=== PATIENT | male | born 1995 | race Caucasian/White ===

== ENCOUNTER 2018-11-30 13:04 | Emergency (ER) | payer OTHER ==
[~2018-11-30] VITALS: Ht 193 cm; Wt 95.5 kg
[2018-11-30 13:11] VITALS: BP 129/83; TEMP 97.7
[2018-11-30] MEDS ORDERED: CEPHALEXIN500 M1 PO (14:46)
[2018-11-30 15:03] VITALS: PULSE 85
== END 2018-11-30 15:03 | disposition home or self-care (01) ==
LOC: COL.ER 13:04
DX: S41.111A Laceration without foreign body of right upper arm, initial encounter (principal); F17.210 Nicotine dependence, cigarettes, uncomplicated; W26.8XXA Contact with other sharp object(s), not elsewhere classified, initial encounter; Y92.59 Other trade areas as the place of occurrence of the external cause

== ENCOUNTER → 2018-12-14 | Outpatient (CLI) | payer OTHER ==
[~2018-12-14] MED LIST: CEPHALEXIN500 M1 PO
[2018-12-14 16:12] VITALS: BP 134/83; PULSE 100; TEMP 98.2
== END ==
LOC: COL.ER 15:55
DX: S41.111D Laceration without foreign body of right upper arm, subsequent encounter (principal); X58.XXXD Exposure to other specified factors, subsequent encounter